=== PATIENT | female | born 2000 | race Caucasian/White ===

== ENCOUNTER 2021-03-07 22:53 | Emergency (ER) | payer BC, OTHER ==
[2021-03-07] MEDS ORDERED: Ibuprofen 800 MG TAB ONE (23:34)
[2021-03-07] MEDS ORDERED: HYDROcodone/Acetaminophen 5/325 mg Tablet ONE (23:34)
== END 2021-03-07 23:45 | disposition home or self-care (01) ==
LOC: BURERS 22:53
DX: M23.92 Unspecified internal derangement of left knee (principal); F17.290 Nicotine dependence, other tobacco product, uncomplicated